=== PATIENT | female | born 1990 | race Caucasian/White ===

== ENCOUNTER 2017-11-07 15:54 | Emergency (ER) | payer OTHER ==
[~2017-11-07] VITALS: Ht 167.6 cm; Wt 54.0 kg
[~2017-11-07 15:54] MED LIST: DIAZEPAM10 MG PO; IBUPROFEN800 MG PO; SEPTRA DS TABLE1 TAB PO; TENCON TABLET1 TAB PO; VIMPAT100 MG PO; ZOFRAN4 MG PO
== END 2017-11-07 18:52 | disposition home or self-care (01) ==
LOC: ER 15:54
DX: S90.112A Contusion of left great toe without damage to nail, initial encounter (principal); W22.8XXA Striking against or struck by other objects, initial encounter; Y93.89 Activity, other specified; Y92.89 Other specified places as the place of occurrence of the external cause; Y99.8 Other external cause status

== ENCOUNTER 2022-06-26 12:04 | Outpatient (CLI) | payer OTHER | END 2022-06-26 12:07 | disposition home or self-care (01) | LOC: SONOGRAMA 12:04 | PROVIDERS: ATTEND Pathology Anatomic Pathology & Clinical Pathology | DX: D44.0 Neoplasm of uncertain behavior of thyroid gland (principal); D34 Benign neoplasm of thyroid gland; E04.9 Nontoxic goiter, unspecified; E07.9 Disorder of thyroid, unspecified ==

== ENCOUNTER 2022-08-18 12:04 | Outpatient (CLI) | payer OTHER | END 2022-08-18 12:07 | disposition home or self-care (01) | LOC: SONOGRAMA 12:04 | PROVIDERS: ATTEND Pathology Anatomic Pathology | DX: D44.0 Neoplasm of uncertain behavior of thyroid gland (principal); D34 Benign neoplasm of thyroid gland; E04.9 Nontoxic goiter, unspecified; E07.9 Disorder of thyroid, unspecified ==